=== PATIENT | male | born 1950 | race Caucasian/White ===

== ENCOUNTER 2018-05-27 14:51 | Inpatient (IN) | payer OTHER ==
[~2018-05-27] VITALS: Ht 180.3 cm; Wt 91.0 kg
[2018-05-27] VITALS (9 sets, daily range): BP systolic 113–138; BP diastolic 78–93
[2018-05-27] MEDS ORDERED: LORazepam 0.5 MG tablet PO PRN (15:40)
[2018-05-27] MEDS ORDERED: diphenhydrAMINE 25mg capsule PO PRN (15:40)
[2018-05-27] MEDS ORDERED: ATOR20TA66 PO (15:48)
[2018-05-27] MEDS ORDERED: METO50TA7 PO (15:48)
[2018-05-27] MEDS ORDERED: LISI30TA4 PO (15:48)
[2018-05-27] MEDS ORDERED: CYAN100087 PO (15:48)
[2018-05-27] MEDS ORDERED: RANI150C4 PO (15:48)
[2018-05-27] MEDS ORDERED: CHOL10002 PO (15:48)
[2018-05-27] MEDS ORDERED: DOCU100C41 PO (15:48)
[2018-05-27] MEDS ORDERED: ASPI-1264 PO (15:48)
[2018-05-27] MEDS: normal saline 1000ml 1,000 ML IV SCH (15:59)
[2018-05-27] MEDS ORDERED: ceFAZolin 1GM/D5W- ADD-VANTAGE 50 ML IV SCH (16:02)
[2018-05-27] MEDS ORDERED: ceFAZolin 1GM/D5W- ADD-VANTAGE 50 ML IV ONE (18:57)
[2018-05-27] MEDS ORDERED: fentaNYL/PF 50MCG/1 ML 2ML syringe ONE (18:57)
[2018-05-27] MEDS ORDERED: midazolam 2 mg/2 ml injection ONE (18:57)
[2018-05-27] MEDS ORDERED: lidocaine 1%/epinephrine 1:100,000 injection 50ml vial ONE (18:58)
[2018-05-27] MEDS ORDERED: ceFAZolin 1000mg inj ONE (18:58)
[2018-05-27] MEDS ORDERED: HYDROcodone/acetaminophen 10/325mg tab PO PRN (21:05)
[2018-05-27] MEDS ORDERED: normal saline 1000ml 1,000 ML IV SCH (21:10)
[2018-05-27] MEDS: docusate sod 100mg capsule PO SCH (22:54)
[2018-05-27] MEDS: HYDROcodone/acetaminophen 5mg/325mg tablet PO PRN (23:06)
[2018-05-28] VITALS (8 sets, daily range): BP systolic 92–128; BP diastolic 58–84
[2018-05-28] MEDS: ceFAZolin 1GM/D5W- ADD-VANTAGE 50 ML IV SCH ×3 (03:51→19:54)
[2018-05-28] MEDS: HYDROcodone/acetaminophen 5mg/325mg tablet PO PRN (04:08)
[2018-05-28] MEDS: famotidine 20mg tablet PO SCH (07:36)
[2018-05-28] MEDS: aspirin 325mg tablet PO SCH (07:37)
[2018-05-28] MEDS: atorvastatin 20mg tablet PO SCH (07:37)
[2018-05-28] MEDS: vitamin D (cholecalciferol) 1,000 unit tablet PO SCH (07:37)
[2018-05-28] MEDS: docusate sod 100mg capsule PO SCH ×2 (07:37→19:54)
[2018-05-28] MEDS: lisinopril 10 MG tablet PO SCH (07:37)
[2018-05-28] MEDS: cyanocobalamin 500mcg tablet PO SCH (07:37)
[2018-05-28] MEDS: metoprolol succinate 25mg (24-HOUR) SR. Tablet PO SCH (07:38)
[2018-05-28] MEDS: normal saline 1000ml 1,000 ML IV SCH ×2 (11:40→19:55)
[2018-05-29 03:00] VITALS: BP 116/74
[2018-05-29 06:00] VITALS: BP 126/78
[2018-05-29] MEDS: vitamin D (cholecalciferol) 1,000 unit tablet PO SCH (07:43)
[2018-05-29] MEDS: docusate sod 100mg capsule PO SCH ×2 (07:43→19:06)
[2018-05-29] MEDS: aspirin 325mg tablet PO SCH (07:43)
[2018-05-29] MEDS: lisinopril 10 MG tablet PO SCH (07:44)
[2018-05-29] MEDS: metoprolol succinate 25mg (24-HOUR) SR. Tablet PO SCH (07:44)
[2018-05-29] MEDS: famotidine 20mg tablet PO SCH (07:45)
[2018-05-29] MEDS: atorvastatin 20mg tablet PO SCH (07:45)
[2018-05-29] MEDS: cyanocobalamin 500mcg tablet PO SCH (07:45)
[2018-05-29 11:00] VITALS: BP 102/67
[2018-05-29 14:00] VITALS: BP 107/67
[2018-05-29] MEDS: normal saline 1000ml 1,000 ML IV SCH ×2 (16:35→19:33)
[2018-05-29 19:00] VITALS: BP 97/66
[2018-05-29] MEDS ORDERED: magnesium 1gm/100ml D5W IVPB 100 ML IV PRN (19:10)
[2018-05-29] MEDS ORDERED: morphine 2 MG/ML inj. syringe IV PRN (19:10)
[2018-05-29] MEDS ORDERED: docusate sod 100mg capsule PO PRN (19:10)
[2018-05-29] MEDS ORDERED: acetaminophen 325mg tablet PO PRN (19:10)
[2018-05-29] MEDS ORDERED: ondansetron/PF 4mg/2ml inj IV PRN (19:10)
[2018-05-29] MEDS ORDERED: magnesium 4gm in 100ml NS 100 ML IV PRN (19:10)
[2018-05-29] MEDS ORDERED: magnesium Cl slow-release 64mg tablet PO PRN (19:10)
[2018-05-29] MEDS ORDERED: potassium Cl 20 mEq SR tablet PO PRN ×2 (19:10)
[2018-05-29] MEDS ORDERED: HYDROcodone/acetaminophen 5mg/325mg tablet PO PRN (19:10)
[2018-05-29] MEDS ORDERED: potassium Cl 40MEQ/NS 500ml 500 ML IV PRN ×2 (19:10)
[2018-05-29] MEDS: heparin, porcine 5000 units/ml vial SQ SCH (19:38)
[2018-05-29] MEDS ORDERED: temazepam 15mg capsule PO PRN (21:00)
[2018-05-29 23:00] VITALS: BP 113/80
[2018-05-30] MEDS: ceFAZolin 1GM/D5W- ADD-VANTAGE 50 ML IV SCH ×4 (00:43→23:44)
[2018-05-30 03:00] VITALS: BP 100/72
[2018-05-30 06:00] VITALS: BP 95/75
[2018-05-30 07:12] LABS: BASOPHILS # (AUTO) 0.1 X10'3 (0-0.2); BASOPHILS % (AUTO) 0.7 % (0-1); EOSINOPHILS # (AUTO) 0.5 X10'3 (0-0.9); EOSINOPHILS % (AUTO) 6.3 % (0-6); HEMOGLOBIN 14.1 g/dl (14.0-17.9); LYMPHOCYTES # (AUTO) 1.7 X10'3 (1.1-4.8); LYMPHOCYTES % (AUTO) 19.4 % (21-51); MEAN CORPUSCULAR HEMOGLOBIN 32.8 PG (27.0-31.0); MEAN CORPUSCULAR HGB CONC 33.5 % (33.0-36.5); MEAN CORPUSCULAR VOLUME 98.1 FL (78-98); MEAN PLATELET VOLUME 9.3 FL (7.4-10.4); MONOCYTES # (AUTO) 0.8 X10'3 (0-0.9); MONOCYTES % (AUTO) 9.7 % (2-12); NEUTROPHILS # (AUTO) 5.5 X10'3 (1.8-7.7); NEUTROPHILS % (AUTO) 63.9 % (42-75); PLATELET COUNT 172 X10'3 (140-440); RED BLOOD COUNT 4.29 X10'6 (4.70-6.10); WHITE BLOOD COUNT 8.6 X10'3 (4.5-11.0)
[2018-05-30 07:19] LABS: PROTHROMBIN TIME 10.7 SECONDS (9.0-12.0)
[2018-05-30] MEDS: aspirin 325mg tablet PO SCH (07:26)
[2018-05-30] MEDS: vitamin D (cholecalciferol) 1,000 unit tablet PO SCH (07:26)
[2018-05-30] MEDS: docusate sod 100mg capsule PO SCH ×2 (07:26→20:33)
[2018-05-30] MEDS: atorvastatin 20mg tablet PO SCH (07:26)
[2018-05-30] MEDS: cyanocobalamin 500mcg tablet PO SCH (07:27)
[2018-05-30] MEDS: famotidine 20mg tablet PO SCH (07:27)
[2018-05-30] MEDS: heparin, porcine 5000 units/ml vial SQ SCH ×2 (07:28→20:33)
[2018-05-30 07:29] LABS: ALANINE AMINOTRANSFERASE 12 U/L (12-78); ALBUMIN/GLOBULIN RATIO 0.7 (1.1-1.5); ALKALINE PHOSPHATASE 117 IU/L (46-116); ANION GAP 10 (8-16); ASPARTATE AMINO TRANSFERASE 19 U/L (10-37); BILIRUBIN,TOTAL 0.5 MG/DL (0.1-1.0); BLOOD UREA NITROGEN 28 MG/DL (7-18); BUN/CREATININE RATIO 17.8 (5.4-32.0); CALCIUM 9.4 MG/DL (8.5-10.1); CHLORIDE 106 MMOL/L (99-107); CREATININE 1.57 MG/DL (0.60-1.10); GLUCOSE 81 MG/DL (70-104); MAGNESIUM 1.9 MG/DL (1.5-2.4); PHOSPHORUS 2.9 MG/DL (2.3-4.5); POTASSIUM 4.6 MMOL/L (3.5-5.1); SODIUM 140 MMOL/L (135-145); TOTAL CARBON DIOXIDE 23.6 MMOL/L (24-32); TOTAL PROTEIN 7.3 G/DL (6.4-8.2); eGFR 44 ML/MIN
[2018-05-30] MEDS: K and/or MAG REPLACEMENT MC SCH (08:00)
[2018-05-30] MEDS: metoprolol succinate 25mg (24-HOUR) SR. Tablet PO SCH (08:00)
[2018-05-30] MEDS: lisinopril 10 MG tablet PO SCH ×2 (08:00→13:45)
[2018-05-30 11:00] VITALS: BP 106/69
[2018-05-30 15:00] VITALS: BP 98/70
[2018-05-30 19:00] VITALS: BP 118/82
[2018-05-30] MEDS: lactobacillus rhamnosus 10,000 MMU CELLS/CAPSULE PO SCH (20:32)
[2018-05-30] MEDS: latanoprost 0.005% 2.5ml ophthalmic drops EACHEYE SCH (20:33)
[2018-05-30 23:00] VITALS: BP 101/74
[2018-05-31 03:00] VITALS: BP 107/71
[2018-05-31 06:00] VITALS: BP 113/78
[2018-05-31 07:02] LABS: BASOPHILS % (AUTO) 0.6 % (0-1); EOSINOPHILS # (AUTO) 0.5 X10'3 (0-0.9); EOSINOPHILS % (AUTO) 6.4 % (0-6); HEMATOCRIT 42.9 % (42.0-52.0); HEMOGLOBIN 14.3 g/dl (14.0-17.9); LYMPHOCYTES # (AUTO) 1.3 X10'3 (1.1-4.8); MEAN CORPUSCULAR HEMOGLOBIN 32.8 PG (27.0-31.0); MEAN CORPUSCULAR HGB CONC 33.4 % (33.0-36.5); MEAN CORPUSCULAR VOLUME 98.3 FL (78-98); MEAN PLATELET VOLUME 9.2 FL (7.4-10.4); MONOCYTES # (AUTO) 0.8 X10'3 (0-0.9); MONOCYTES % (AUTO) 10.7 % (2-12); NEUTROPHILS # (AUTO) 5.1 X10'3 (1.8-7.7); NEUTROPHILS % (AUTO) 65.3 % (42-75); PLATELET COUNT 168 X10'3 (140-440); PROTHROMBIN TIME 10.8 SECONDS (9.0-12.0); RED BLOOD COUNT 4.36 X10'6 (4.70-6.10); RED CELL DISTRIBUTION WIDTH 14.4 % (11.5-14.5); WHITE BLOOD COUNT 7.9 X10'3 (4.5-11.0)
[2018-05-31 07:05] LABS: ALBUMIN 2.9 G/DL (3.4-5.0); ANION GAP 9 (8-16); BLOOD UREA NITROGEN 24 MG/DL (7-18); CALCIUM 9.2 MG/DL (8.5-10.1); CHLORIDE 104 MMOL/L (99-107); CREATININE 1.41 MG/DL (0.60-1.10); GLUCOSE 86 MG/DL (70-104); MAGNESIUM 1.8 MG/DL (1.5-2.4); POTASSIUM 4.5 MMOL/L (3.5-5.1); SODIUM 140 MMOL/L (135-145); TOTAL CARBON DIOXIDE 26.7 MMOL/L (24-32); eGFR 50 ML/MIN
[2018-05-31] MEDS: ceFAZolin 1GM/D5W- ADD-VANTAGE 50 ML IV SCH ×3 (07:48→23:26)
[2018-05-31] MEDS: heparin, porcine 5000 units/ml vial SQ SCH ×2 (07:48→20:08)
[2018-05-31] MEDS: famotidine 20mg tablet PO SCH (07:48)
[2018-05-31] MEDS: docusate sod 100mg capsule PO SCH ×2 (07:49→20:08)
[2018-05-31] MEDS: lactobacillus rhamnosus 10,000 MMU CELLS/CAPSULE PO SCH ×2 (07:49→20:08)
[2018-05-31] MEDS: vitamin D (cholecalciferol) 1,000 unit tablet PO SCH (07:49)
[2018-05-31] MEDS: aspirin 325mg tablet PO SCH (07:49)
[2018-05-31] MEDS: atorvastatin 20mg tablet PO SCH (07:49)
[2018-05-31] MEDS: lisinopril 10 MG tablet PO SCH (07:49)
[2018-05-31] MEDS: metoprolol succinate 25mg (24-HOUR) SR. Tablet PO SCH (07:49)
[2018-05-31] MEDS: cyanocobalamin 500mcg tablet PO SCH (07:49)
[2018-05-31] MEDS: K and/or MAG REPLACEMENT MC SCH (08:00)
[2018-05-31 11:00] VITALS: BP 110/71
[2018-05-31] MEDS: normal saline 1000ml 1,000 ML IV SCH (14:11)
[2018-05-31 15:00] VITALS: BP 109/67
[2018-05-31 19:00] VITALS: BP 114/78
[2018-05-31] MEDS: latanoprost 0.005% 2.5ml ophthalmic drops EACHEYE SCH (20:08)
[2018-05-31 23:00] VITALS: BP 118/76
[2018-06-01 03:00] VITALS: BP 118/68
[2018-06-01 06:00] VITALS: BP 100/76
[2018-06-01 06:32] LABS: INR 1.1 INR; PROTHROMBIN TIME 10.9 SECONDS (9.0-12.0)
[2018-06-01 06:43] LABS: ALBUMIN 2.9 G/DL (3.4-5.0); ANION GAP 12 (8-16); BLOOD UREA NITROGEN 25 MG/DL (7-18); BUN/CREATININE RATIO 16.2 (5.4-32.0); CHLORIDE 104 MMOL/L (99-107); CREATININE 1.54 MG/DL (0.60-1.10); GLUCOSE 86 MG/DL (70-104); MAGNESIUM 1.9 MG/DL (1.5-2.4); POTASSIUM 4.4 MMOL/L (3.5-5.1); SODIUM 143 MMOL/L (135-145); TOTAL CARBON DIOXIDE 27.1 MMOL/L (24-32); eGFR 45 ML/MIN
[2018-06-01 06:48] LABS: BASOPHILS # (AUTO) 0.1 X10'3 (0-0.2); BASOPHILS % (AUTO) 0.7 % (0-1); EOSINOPHILS # (AUTO) 0.5 X10'3 (0-0.9); EOSINOPHILS % (AUTO) 6.7 % (0-6); HEMOGLOBIN 14.1 g/dl (14.0-17.9); LYMPHOCYTES # (AUTO) 1.4 X10'3 (1.1-4.8); LYMPHOCYTES % (AUTO) 17.8 % (21-51); MEAN CORPUSCULAR HEMOGLOBIN 32.9 PG (27.0-31.0); MEAN CORPUSCULAR HGB CONC 33.6 % (33.0-36.5); MEAN PLATELET VOLUME 9.4 FL (7.4-10.4); MONOCYTES # (AUTO) 0.9 X10'3 (0-0.9); MONOCYTES % (AUTO) 10.6 % (2-12); NEUTROPHILS # (AUTO) 5.2 X10'3 (1.8-7.7); NEUTROPHILS % (AUTO) 64.2 % (42-75); PLATELET COUNT 181 X10'3 (140-440); RED BLOOD COUNT 4.29 X10'6 (4.70-6.10); RED CELL DISTRIBUTION WIDTH 13.6 % (11.5-14.5); WHITE BLOOD COUNT 8.1 X10'3 (4.5-11.0)
[2018-06-01] MEDS: K and/or MAG REPLACEMENT MC SCH (08:00)
[2018-06-01] MEDS: aspirin 325mg tablet PO SCH (08:06)
[2018-06-01] MEDS: lisinopril 10 MG tablet PO SCH (08:06)
[2018-06-01] MEDS: famotidine 20mg tablet PO SCH (08:06)
[2018-06-01] MEDS: metoprolol succinate 25mg (24-HOUR) SR. Tablet PO SCH (08:06)
[2018-06-01] MEDS: atorvastatin 20mg tablet PO SCH (08:06)
[2018-06-01] MEDS: vitamin D (cholecalciferol) 1,000 unit tablet PO SCH (08:06)
[2018-06-01] MEDS: cyanocobalamin 500mcg tablet PO SCH (08:06)
[2018-06-01] MEDS: lactobacillus rhamnosus 10,000 MMU CELLS/CAPSULE PO SCH ×2 (08:06→20:27)
[2018-06-01] MEDS: docusate sod 100mg capsule PO SCH ×2 (08:07→20:26)
[2018-06-01] MEDS: heparin, porcine 5000 units/ml vial SQ SCH ×2 (08:07→20:27)
[2018-06-01] MEDS: ceFAZolin 1GM/D5W- ADD-VANTAGE 50 ML IV SCH ×2 (08:43→16:39)
[2018-06-01 11:00] VITALS: BP 110/66
[2018-06-01 15:00] VITALS: BP 97/59
[2018-06-01 18:00] VITALS: BP 108/71
[2018-06-01] MEDS: latanoprost 0.005% 2.5ml ophthalmic drops EACHEYE SCH (20:27)
[2018-06-01 23:00] VITALS: BP 100/71
[2018-06-02] MEDS: ceFAZolin 1GM/D5W- ADD-VANTAGE 50 ML IV SCH ×3 (00:14→15:07)
[2018-06-02 03:00] VITALS: BP 116/63
[2018-06-02 06:00] VITALS: BP 115/72
[2018-06-02 07:02] LABS: BASOPHILS # (AUTO) 0.1 X10'3 (0-0.2); BASOPHILS % (AUTO) 0.8 % (0-1); EOSINOPHILS # (AUTO) 0.6 X10'3 (0-0.9); EOSINOPHILS % (AUTO) 7.6 % (0-6); HEMATOCRIT 40.4 % (42.0-52.0); HEMOGLOBIN 13.5 g/dl (14.0-17.9); LYMPHOCYTES # (AUTO) 1.7 X10'3 (1.1-4.8); LYMPHOCYTES % (AUTO) 22.6 % (21-51); MEAN CORPUSCULAR HEMOGLOBIN 32.9 PG (27.0-31.0); MEAN CORPUSCULAR HGB CONC 33.5 % (33.0-36.5); MEAN CORPUSCULAR VOLUME 98.5 FL (78-98); MEAN PLATELET VOLUME 9.1 FL (7.4-10.4); MONOCYTES # (AUTO) 0.8 X10'3 (0-0.9); MONOCYTES % (AUTO) 10.6 % (2-12); NEUTROPHILS # (AUTO) 4.4 X10'3 (1.8-7.7); NEUTROPHILS % (AUTO) 58.4 % (42-75); PLATELET COUNT 176 X10'3 (140-440); RED BLOOD COUNT 4.11 X10'6 (4.70-6.10); RED CELL DISTRIBUTION WIDTH 14.2 % (11.5-14.5); WHITE BLOOD COUNT 7.6 X10'3 (4.5-11.0)
[2018-06-02 07:11] LABS: PROTHROMBIN TIME 10.8 SECONDS (9.0-12.0)
[2018-06-02 07:20] LABS: ALBUMIN 2.8 G/DL (3.4-5.0); ANION GAP 8 (8-16); BLOOD UREA NITROGEN 26 MG/DL (7-18); BUN/CREATININE RATIO 15.9 (5.4-32.0); CALCIUM 8.6 MG/DL (8.5-10.1); CHLORIDE 105 MMOL/L (99-107); CREATININE 1.64 MG/DL (0.60-1.10); GLUCOSE 81 MG/DL (70-104); MAGNESIUM 2.1 MG/DL (1.5-2.4); POTASSIUM 4.4 MMOL/L (3.5-5.1); SODIUM 141 MMOL/L (135-145); TOTAL CARBON DIOXIDE 28.1 MMOL/L (24-32); eGFR 42 ML/MIN
[2018-06-02] MEDS: cyanocobalamin 500mcg tablet PO SCH (07:42)
[2018-06-02] MEDS: lisinopril 10 MG tablet PO SCH (07:42)
[2018-06-02] MEDS: famotidine 20mg tablet PO SCH (07:42)
[2018-06-02] MEDS: metoprolol succinate 25mg (24-HOUR) SR. Tablet PO SCH (07:42)
[2018-06-02] MEDS: atorvastatin 20mg tablet PO SCH (07:42)
[2018-06-02] MEDS: docusate sod 100mg capsule PO SCH (07:42)
[2018-06-02] MEDS: lactobacillus rhamnosus 10,000 MMU CELLS/CAPSULE PO SCH (07:42)
[2018-06-02] MEDS: aspirin 325mg tablet PO SCH (07:43)
[2018-06-02] MEDS: heparin, porcine 5000 units/ml vial SQ SCH (07:43)
[2018-06-02] MEDS: vitamin D (cholecalciferol) 1,000 unit tablet PO SCH (07:43)
[2018-06-02] MEDS: K and/or MAG REPLACEMENT MC SCH (07:49)
[2018-06-02 11:00] VITALS: BP 108/71
[2018-06-02 15:00] VITALS: BP 98/68
== END 2018-06-02 17:24 | DRG 227 ==
LOC: SSTAY O 14:51 → PCU 3S 20:58 → SSTAY O 05-29 19:09 → PCU 3S 05-29 19:09
PROVIDERS: ADMIT Internal Medicine; ATTEND Family Medicine
PROC: 0JH608Z Insertion of Defibrillator Generator into Chest Subcutaneous Tissue and Fascia, Open Approach (ICD-10-PCS; principal; 2018-05-27)
PROC: 02HK3KZ Insertion of Defibrillator Lead into Right Ventricle, Percutaneous Approach (ICD-10-PCS; 2018-05-27)
PROC: 02H63KZ Insertion of Defibrillator Lead into Right Atrium, Percutaneous Approach (ICD-10-PCS; 2018-05-27)
DX: I25.5 Ischemic cardiomyopathy (principal); I49.9 Cardiac arrhythmia, unspecified; I10 Essential (primary) hypertension; E78.5 Hyperlipidemia, unspecified; H40.9 Unspecified glaucoma; I25.10 Atherosclerotic heart disease of native coronary artery without angina pectoris; N28.9 Disorder of kidney and ureter, unspecified; Z60.2 Problems related to living alone; Z79.82 Long term (current) use of aspirin; Z79.899 Other long term (current) drug therapy
CPT/HCPCS: 33249; 36415; 71046; 80048; 80053; 83735; 84100; 85025; 85610; 87070; 93005; 97110; 97116; 97162; 97530; 99152; 99153; A4620; C1721; C1895; J0690; J1644; J2250; J3010; J3490; J7030; Q0163